=== PATIENT | male | born 1995 | race Caucasian/White ===

== ENCOUNTER 2019-04-16 20:22 | Emergency (ER) | payer SELFPAY ==
[~2019-04-16] VITALS: Ht 188 cm; Wt 81.6 kg
[2019-04-16 21:00] VITALS: BP 130/80
== END 2019-04-16 23:35 | disposition left against medical advice (07) ==
LOC: EDBD 20:22 → ER 20:22
DX: R10.30 Lower abdominal pain, unspecified (principal); Z53.21 Procedure and treatment not carried out due to patient leaving prior to being seen by health care provider